=== PATIENT | male | born 1960 ===

== ENCOUNTER 2019-11-03 13:57 | Emergency (ER) | payer OTHER, SELFPAY ==
[2019-11-03 14:17] VITALS: BP 136/90; PULSE 73; RESP 18; TEMP 36.7; O2SAT 97; BMI 26.6
[2019-11-03 15:05] VITALS: BP 160/101; PULSE 70; RESP 14; O2SAT 98
--- NOTE | 2019-11-03 15:07 | W.ED.SKABFB ---
HPI - Skin/Abscess/Foreign Bdy General: Chief complaint: Skin/Abscess/Foreign Body Stated complaint: STUCK BY A STICK IN ABD Time Seen by Provider: 11/03/19 15:00 History of Present Illness: HPI narrative: Patient has an infected hair/abscess right side of his abdomen start about 3 weeks ago progressively got worse. Patient states that he got stuck by a thorn from a thorn tree about 3 weeks ago he said it stayed about grape size for about a week and then become little bit bigger like 1 in size than yesterday just got really big and painful on his abdomen. complaint: abscess/boil Onset (ago): week(s) Tetanus up to date: yes Severity: moderate Severity scale (1-10): 4 Quality: aching Associated symptoms: Deny chills, fever(s), nausea or vomiting Review of Systems Const: Denies: fever(s), chills or body aches Eyes: Denies: change in vision or blurry vision ENMT: Denies: throat pain or nasal congestion Card: Denies: chest pain or dyspnea on exertion Resp: Denies: dyspnea, productive cough or non-productive cough GI: Denies: abdominal pain, nausea or vomiting : Denies: difficulty urinating Musc: Denies: extremity pain Skin/Breast: Reports: skin tenderness and skin swelling (Abdomen right lower side); Denies: rash Neuro: Denies: headache(s) Psych: Denies: anxiety or depression Levy/Lymph: Denies: easy bruising Physical Exam Const: COMMON NORMALS: no acute distress, average body habitus and patient oriented x3 HENMT: COMMON NORMALS: normocephalic HEAD & SCALP: normal to inspection and normocephalic FACE & SINUS: normal facial exam Eye: COMMON NORMALS: conjunctivae normal GENERAL EYE: appearance normal, both eyes and all related structures CONJUNCTIVA: Yes conjunctivae normal Neck/C-Spine: COMMON NORMALS: no JVD Chest: COMMONS NORMALS: normal inspection of the chest Resp: COMMON NORMALS: normal respiratory effort and clear to auscultation bilaterally AUSCULTATION: clear to auscultation bilaterally Cardio: COMMON NORMALS: no JVD, regular rate and regular rhythm RATE: regular rate RHYTHM: regular rhythm GI: COMMON NORMALS: Normal to inspection, nondistended, normoactive bowel sounds present Extremity: COMMON NORMALS: normal to inspection and full ROM Neuro: COMMON NORMALS: patient oriented x3 Skin: OTHER: Erythema to abdomen right lower side is taut, what it feels like an abscess is probably about golf ball size very hard from the outer surface redness extends over the bellybutton is about 4 inches away tender to touch Procedures Abscess I/D Site: abdomen Side (if applicable): right Local Anesthetic: lidocaine 1% Amount of anesthesia used (mL): 4 Technique: incised with #11 blade Amount of fluid expressed (mL): 15 Irrigation: Yes Packing used?: iodoform Complications: pain Course Vital Signs: Vital signs: Vital Signs Temperature 98.0 F 11/03/19 14:17 Pulse Rate 71 11/03/19 15:50 Respiratory Rate 16 11/03/19 15:50 Blood Pressure 139/95 11/03/19 15:50 Pulse Oximetry 100 11/03/19 15:50 MDM - Skin/Abscess/Foreign Bdy MDM Narrative: Medical decision making narrative: Bedside ultrasound performed no foreign body seen Discharge Plan Discharge Patient Disposition: Home Clinical Impression: Abscess of skin or subcutaneous tissue Qualifiers: Site of cutaneous abscess: trunk Site of cutaneous abscess of trunk: abdominal wall Qualified Code(s): L02.211 - Cutaneous abscess of abdominal wall Condition: Stable Prescriptions: New Bactrim DS 800-160 mg tablet 1 tab PO BID 10 Days Qty: 20 RF: 0 hydrocodone-acetaminophen 5-325 mg tablet 1 tab PO Q6H PRN (Reason: pain) Qty: 14 RF: 0 Discharge Orders: Discharge Order (Routine); Ordered 11/03/19 Ordered By: Matias Almaguer Discharge Diet: Usual diet Discharge Activity: Increase activity as tolerated Patient Instructions: Abscess (ED) Activity Restrictions/Additional Instructions: Follow-up with medical provider as directed. Take medications as prescribed. Return to the ER or your medical provider if condition worsens. Please read and understand discharge instructions. If any questions ask please. Call in 2 to 3 days get a result of wound culture. Follow-up urgent care if symptoms do not improve. Can remove gauze in 24 to 36 hours. Discharge Date/Time: 11/03/19 15:50 Coding Level of Care Code ED Store [employer]ch[employer] for [employer] Fwd Exam Comprehensive
[2019-11-03] MEDS: HYDROcodone-acetaminophen 7.5-325 mg Tablet 1 TAB PO (15:09)
[2019-11-03] MEDS: lidocaine 1% INJ 20 mL INTRADERMA (15:09)
[2019-11-03 15:50] VITALS: BP 139/95; PULSE 71; RESP 16; O2SAT 100
== END 2019-11-03 15:50 | disposition home or self-care (01) ==
PROVIDERS: Emergency Provider Nurse Practitioner Family
DX: L02.211 Cutaneous abscess of abdominal wall (principal)
CPT/HCPCS: 10060; 12345; 87070; 87205; 99281; 99283